=== PATIENT | female | born 1965 | race African-American/Black ===

== ENCOUNTER → 2021-07-16 | Outpatient (CLI) | payer BC ==
[~2021-07-16] MED LIST: AMLO-186 PO; BACL10TA PO; BUPIVACAINE MPF 0.25% 10 ML VIAL. ONE; IOHEXOL 180 MG/ML 10 ML VIAL. ONE; METO50TA6 PO; SPIR25TA5 PO; methylPREDNISolone ACETATE 80 MG/ML VIAL. ONE
--- NOTE | 2021-07-16 13:06 | PDOC1 ---
INITIAL PAIN CONSULT DATE OF SERVICE: DOS: DATE: 07/16/21 TIME: 12:58 CHIEF COMPLAINT: Chief Complaint: Left knee joint pain HISTORY OF PRESENT ILLNESS: 56-year-old female presents history of pain in the left knee for about a year and a half getting worse but present for about 5 years patient reports is gradually increasing not to change any specific injury but she did feel a land on her knee about a year and a half ago causing some pain at the time then it got better now it is becoming more noticeable with pain in the knee joint itself more in the medial aspect and lateral but present throughout the knee patient report is worse with weightbearing, standing, putting all of her weight on her left knee such as climbing up a stair or a step and tries to avoid these activities if possible. Patient scribes the pain is sharp stabbing throbbing can be numb and tingling change during the day worse with activity standing walking and again worse over the past week and a half or so patient reports feels pinching she is able to sleep with the knee pain however reports no bowel or bladder incontinence no assistive devices to ambulate but does affect her walking fairly significantly patient has not tried any physical therapy at this time she is doing some stretching on her own no other treatments or physical modalities have been attempted. Patient has been taking Voltaren ointment which reports only minimal decrease in pain on the left knee. Patient did have a MRI scan of the left knee as well. Patient rates her disability rating 0-10 10 being the worst is a 5 within responsibilities recreation social activity occupation 06 behavior 1 with self-care and 1 with life support activities. Patient reports no significant pain in the right knee but occasional pain in the low back but only occasionally. PAST MEDICAL HISTORY: PMH: Hypertension, arthritis, cigarette smoking quit 30 years ago, attention deficit disorder PREVIOUS SURGERIES: Past Surgical Hx: Gastric bypass, uterine fibroid excision CURRENT MEDICATIONS: Current Meds: Active Scripts Medications Dose Route/Sig Max Daily Dose Days Date Category Baclofen 10 Mg Tablet 1 Tab PO DAILY 07/16/21 Reported Amlodipine Besylate 5 Mg Tablet 5 Mg PO DAILY 07/16/21 Reported Spironolactone 25 Mg Tablet 1 Tab PO DAILY 07/16/21 Reported Metoprolol Tartrate 50 Mg Tablet 1 Tab PO DAILY 07/16/21 Reported FAMILY HISTORY: Family Hx: Heart disease, colon cancer, hypertension SOCIAL HISTORY: Social Hx: Patient does not terrell alcohol quit smoking 9 years ago does not use any illegal illicit recreational drugs is single lives locally in [facility] REVIEW OF SYSTEMS: ROS: Positive for those items mentioned in history of present illness, all systems are reviewed, otherwise negative ,and are complete full and well-documented on patient's chart. PHYSICAL EXAM: VS: Blood pressure 143/86 pulse 57 respirations 16 temperature 97.9 F height is 5 feet 5 inches weight is 268 pounds PE: PHYSICAL EXAMINATION: GENERAL: The patient is awake, alert, oriented, appropriate, very pleasant in demeanor HEENT: Shows normocephalic, atraumatic. Extraocular movements are intact and symmetrical. Oral cavity: Mucous membranes moist and pink. Dentition is intact. NECK: Shows anterior throat supple without palpable lymphadenopathy noted. Swallow reflex symmetrical. CHEST: Shows normal on inspection. Breath sounds are clear bilaterally, distant but no rales or rhonchi. HEART: Shows S1, S2 clear. No murmurs auscultated. ABDOMEN: Soft, nontender, nondistended, obese. No palpable organomegaly is noted. BACK: Shows spine grossly in the midline. Normal-appearing cervical lordotic curvature. There is slightly increased thoracic kyphosis, some flattening of the lumbar lordotic curvature. Lumbar paraspinous muscles show symmetrical on inspection, on palpation shows some moderate tenderness diffusely throughout the upper, middle and lower distribution of the paraspinous muscles bilaterally and also into the lower thoracic paraspinous musculature, firm and tender, but without specific trigger points, without radiation of pain. The patient has good rotational motion of the lumbar spine, both laterally as well as extension and flexion without significant difficulty. No tenderness over the spinous processes, sacrum or sacroiliac regions. EXTREMITIES: Lower extremities show deep tendon reflexes 2+ in the patellar and tendo calcaneus tendons. Motor exam is 5 on a scale of 5 with right dorsif lexion, extension, quadriceps and hamstring flexion and 5/5 on the left. Peripheral pulses are 1+ posterior tibial. No peripheral edema is noted bilaterally. Lower extremities are warm and dry to touch, equal in color and appearance. Patient's left knee shows some mild tenderness with palpation of the medial collateral ligament but not the lateral aspect no popliteal tenderness patella is mobile. Range of motion shows good hinge motion without significant crepitus or ratcheting bilaterally. SKIN: Shows warm and dry, good turgor. No edema. No sores, rashes or bruising throughout. IMPRESSION: Impression: 56-year-old female with left knee joint pain with weightbearing MRI scan left knee as noted Hypertension Plan: Options were discussed with patient including physical therapies interventional techniques and medication management. Patient elects interventional techniques. We discussed a left intra-articular knee joint injection using description as well as anatomical models to describe the procedure. Risk were discussed including but not limited to bleeding infection possibility of intravascular injection sequelae spread local anesthetic numbness side effects of steroid medication portals regarding pain control. Patient understands wished to proceed. Patient return to clinic in approximately 4 weeks for follow-up, was counseled as to return appointment, activity level, and side effect to be aware of. Under sterile prep and drape patient in supine position using C-arm fluoroscopic guidance patient's left knee was sterilely prepped and draped in usual fashion. Using C-arm fluoroscopy the medial aspect of the knee joint was identified and visualized and using 1% lidocaine 25-gauge needle of the area of the skin overlying the medial knee compartment was anesthetized. Using a 22-gauge quickie needle with stylette the joint was entered under direct visualization without difficulty. Stylet was removed at this time 2 cc of contrast was then injected with good spread within the knee joint itself without washout or uptake. At this time solution containing 3 cc of 0.25 bupivacaine and 80 mg Depo-Medrol, was injected. Needle was withdrawn and sterile bandage applied. Patient tolerated procedure well and had no complications. ANGEL STANFORD MD Jul 16, 2021 13:06
--- NOTE | 2021-07-16 13:07 | PDOC4 ---
Procedure Note: ICD 10 Code: ICD 10 Code: M2 5.562 M1 7.12 Procedure Note: Patient was consented for left intra-articular knee joint injection with fluoroscopic guidance. Risk were discussed including not limited to bleeding infection possibility of intravascular injection sequelae spread local anesthetic numbness side effects steroid medication exposure fluoroscopy and poor results regarding pain control. Patient understands wished to proceed. Under sterile prep and drape patient in supine position using C-arm fluoroscopic guidance patient's left knee was sterilely prepped and draped in usual fashion. Using C-arm fluoroscopy the medial aspect of the knee joint was identified and visualized and using 1% lidocaine 25-gauge needle of the area of the skin overlying the medial knee compartment was anesthetized. Using a 22-gauge quickie needle with stylette the joint was entered under direct visualization without difficulty. Stylet was removed at this time 2 cc of contrast was then injected with good spread within the knee joint itself without washout or uptake. At this time solution containing 3 cc of 0.25 bupivacaine and 80 mg Depo-Medrol, was injected. Needle was withdrawn and sterile bandage applied. Patient tolerated procedure well and had no complications. ANGEL STANFORD MD Jul 16, 2021 13:07
== END | disposition home or self-care (01) ==
LOC: PNCL 08:20
PROVIDERS: ATTEND Anesthesiology
DX: M17.12 Unilateral primary osteoarthritis, left knee (principal); I10 Essential (primary) hypertension; Z87.891 Personal history of nicotine dependence; Z79.899 Other long term (current) drug therapy; Z98.890 Other specified postprocedural states; Z82.49 Family history of ischemic heart disease and other diseases of the circulatory system; Z80.0 Family history of malignant neoplasm of digestive organs
CPT/HCPCS: 20610; 77002; G0463; J1040; J3490; Q9965